=== PATIENT | male | born 1980 | race Caucasian/White ===

== ENCOUNTER 2018-06-20 18:25 | Emergency (ER) | payer OTHER, SELFPAY ==
[2018-06-20 18:26] VITALS: BP 124/81; PULSE 81; RESP 14; TEMP 37; O2SAT 100; BMI 22.9
--- NOTE | 2018-06-20 19:25 | ED.VIS.GEN ---
History of Present Illness Chief Complaint: Laceration Informant: Patient Onset: Today Context: Sudden Onset Quality: Laceration secondary to nail Location: Submental region Current Severity: Mild Maximum Severity: Mild Worsened by: Nothing Relieved by: Nothing Associated Symptoms: No associated symptoms Narrative: Patient presents with laceration submental region. This occurred secondary to a nail. Last tetanus immunization 2001. Prior similar symptoms: No Recent Illness/Hospitalization: No - Past Medical History (1) No significant past medical history Status: Acute Past Medical History - Allergies and Home Meds Allergies/Adverse Reactions: Allergies No Known Allergies Allergy (Verified 06/20/18 18:28) Primary Care Physician: Jimena Hyatt MD [Primary Care Provider] - Past Medical History: None Surgical History: no surgical history Lives: Spouse/ Significant Other Smoking Status: Smoker, status unknown Drugs: None Review of Systems Eyes: Denies: Visual changes - bilaterally, Blurred Vision - bilaterally, Diplopia Hematologic: Denies: Easy bruising, Easy bleeding Allergy: Denies: Uticaria, Swelling of the mouth Physical Exam Vital Signs/Narrative: Vital Signs Temp Pulse Resp BP Pulse Ox 06/20/18 18:26 98.6 F 81 14 124/81 H 100 Inital Vital Signs reviewed: Yes General: Well nourished, Well developed, No Acute Distress Head: Normocephalic, Trauma Eyes: Perrl, EOMI. Negative for: Pale conjunctiva, Scleral icterus ENT: Moist mucous membranes, No rhinorrhea Neck: Supple Cardiovascular: Regular rate, Regular rhythm, No murmurs Respiratory: No distress Skin: Normal color, Trauma - Less than 1 cm laceration submental area. Wound is not gaping. There is slight irregularity noted. There is no tenderness of the jaw. Neurological: Alert, Oriented x3, Cranial nerves II-XII grossly intact, Normal Strength, Normal Sensation Psychological: Normal affect, Normal Mood Diagnostic/Tx/Re-eval - Medical Decision Making Patient has a laceration. He was explained treatment options. Patient elected Steri-Strips. He received Adacel since his last tetanus shot was 2001. ED Disposition - Plan for ED Patient: Instructions: ED Laceration Facial Sutr Tape Referrals: Jimean Hyatt MD [Primary Care Provider] - As Needed Additional Instructions: Do not remove the Steri-Strips. Let them fall off. As per our discussion you may have a slightly larger scar since the wound was not sutured.
[2018-06-20] MEDS: Diphth,Pertuss(Acell),Tet Vac 0.5 ML Vial IM (19:40)
[2018-06-20 19:44] VITALS: BP 122/79; PULSE 87; RESP 16; O2SAT 100
== END 2018-06-20 19:54 | disposition home or self-care (01) ==
LOC: ED 19:29
PROVIDERS: Emergency Provider Emergency Medicine; Family Provider Family Medicine; PCP Family Medicine
DX: S11.81XA Laceration without foreign body of other specified part of neck, initial encounter (principal); X58.XXXA Exposure to other specified factors, initial encounter; Y93.9 Activity, unspecified; Y92.9 Unspecified place or not applicable; F17.200 Nicotine dependence, unspecified, uncomplicated
CPT/HCPCS: 90471; 90715; 99282